=== PATIENT | female | born 1970 | race American Indian/Alaskan Native ===

== ENCOUNTER 2017-06-11 11:52 | Outpatient (CLI) | payer BC ==
[2017-06-11 12:20] LABS: Basophils % (Auto) 0.7 % (0.0-1.8); Eosinophils % (Auto) 1.8 % (0.0-4.3); Hematocrit 36.7 % (30.3-42.9); Hemoglobin 11.7 gm/dl (10.1-14.3); Mean Corpuscular HGB Conc 32 % (30-34); Mean Corpuscular Hemoglobin 26 pg (28-32); Mean Corpuscular Volume 82 fl (79-97); Platelet Count 333 K/mm3 (140-440); Red Blood Count 4.48 M/mm3 (3.65-5.03); Red Cell Distribution Width 15.3 % (13.2-15.2); White Blood Count 4.5 K/mm3 (4.5-11.0)
[2017-06-11 12:34] LABS: Anion Gap 18 mmol/L; BUN/Creatinine Ratio 13; Blood Urea Nitrogen 8 mg/dL (7-17); Calcium 8.3 mg/dL (8.4-10.2); Carbon Dioxide 24 mmol/L (22-30); Chloride 105.2 mmol/L (98-107); Cholesterol 170 mg/dL (50-199); Glucose 97 mg/dL (65-100); HDL Cholesterol 43 mg/dL (40-59); LDL Cholesterol,Direct 102 mg/dL (50-130); Potassium 3.6 mmol/L (3.6-5.0); Sodium 144 mmol/L (137-145); Triglycerides 127 mg/dL (2-149)
== END 2017-06-11 11:53 | disposition home or self-care (01) ==
LOC: LAB 11:52
PROVIDERS: ATTEND Obstetrics & Gynecology
DX: E66.8 Other obesity (principal); R79.89 Other specified abnormal findings of blood chemistry
CPT/HCPCS: 36415; 80048; 80061; 83036; 85025

== ENCOUNTER 2017-06-11 13:46 | Outpatient (CLI) | payer BC ==
--- NOTE | 2017-06-11 16:47 | Ultrasound Report ---
FINAL REPORT EXAM: US TRANSVAGINAL HISTORY: LEIOMYOMA UTERUS TECHNIQUE: Ultrasound in pelvis transvaginal with pulsed and color Doppler evaluation PRIORS: None. FINDINGS: Uterus is 12.9 x 10.0 x 7.9 centimeters The endometrial stripe is 0.6 centimeters There are 4 echogenic structures present within the body of the uterus. At the fundus there is a sub serosal fibroid measuring 3.1 x 4.2 x 3.3 centimeters. Are within the body of the uterus there are 3 additional fibroids the largest measuring 6.3 x 4.4 x 5.2 centimeters. Additionally is a 5.5 x 3.0 x 5.7 centimeters and a smaller 2.2 centimeter fibroid identified Right ovary is 3.4 x 2.0 x 2.0 centimeters. There is 1.2 centimeter simple appearing cyst within the right ovary and a smaller 1.1 centimeter cyst Left ovary is 3.4 x 1.4 x 2.5 centimeters. No abnormal mass or cyst identified. There is normal vascular flow on Doppler evaluation IMPRESSION: Enlarged multi fibroid uterus Right ovarian cysts which appear physiologic
--- NOTE | 2017-06-11 16:49 | Ultrasound Report ---
FINAL REPORT EXAM: US PELVIC COMPLETE HISTORY: LEIOMYOMA UTERUS TECHNIQUE: PRIORS: None. FINDINGS: Uterus is 12.9 x 10.0 x 7.9 centimeters The endometrial stripe is 0.6 centimeters There are 4 echogenic structures present within the body of the uterus. At the fundus there is a sub serosal fibroid measuring 3.1 x 4.2 x 3.3 centimeters. within the body of the uterus there are 3 additional fibroids the largest measuring 6.3 x 4.4 x 5.2 centimeters. Additionally is a 5.5 x 3.0 x 5.7 centimeters and a smaller 2.2 centimeter fibroid identified Right ovary is 3.4 x 2.0 x 2.0 centimeters. There is 1.2 centimeter simple appearing cyst within the right ovary and a smaller 1.1 centimeter cyst Left ovary is 3.4 x 1.4 x 2.5 centimeters. No abnormal mass or cyst identified. There is normal vascular flow on Doppler evaluation IMPRESSION: Enlarged multi fibroid uterus Right ovarian cysts which appear physiologic
== END 2017-06-11 13:47 | disposition home or self-care (01) ==
LOC: US 13:46
PROVIDERS: ATTEND Obstetrics & Gynecology
DX: D25.2 Subserosal leiomyoma of uterus (principal); N83.201 Unspecified ovarian cyst, right side
CPT/HCPCS: 36415; 76830; 76856; 80048; 80061; 83036; 85025

== ENCOUNTER 2017-08-21 05:49 | Emergency (ER) | payer BC ==
[2017-08-21 05:56] VITALS: BP 139/77
[2017-08-21] MEDS ORDERED: MOTRIN PO ONE (07:55)
--- NOTE | 2017-08-21 08:09 | Emergency Department Report ---
ED Headache HPI - General Chief Complaint: Headache Stated Complaint: HEADACHE Time Seen by Provider: 08/21/17 07:55 Source: patient - History of Present Illness Initial Comments: Patient is a 47-year-old female with no prior medical history who presents to ED complaining of intermittent, throbbing/aching, 6 out of 10 intensity, temporal parietal localized headache for the past 3 days. Patient states she usually does not get headaches this the first time she is in headache. Patient states she took a Motrin 600mg that relieved her pain for a few hours but pain came back. Patient states headache was a bit worse this morning so she couldn' t go to work. She denies any falls, trauma to the head, injuries, blurry vision , nausea or vomiting. Quality: moderate Head Injury Location: temporal, parietal Modifying Factors: improves with: medication (motrin) Associated Symptoms: denies: confusion, fatigue, facial pain, loss of consciousness, nausea/vomiting, nasal congestion, sinus infection, stiff neck Allergies/Adverse Reactions: Allergies No Known Allergies Allergy (Unverified 06/11/17 13:46) Home Medications: Ambulatory Orders Butalb/Acetamin/Caff 50-325-40 [Fioricet] 1 tab PO Q6HR PRN #20 tab 08/21/17 Ibuprofen [Motrin 800 MG tab] 800 mg PO Q8H #30 tablet 08/21/17 ED Review of Systems ROS: Stated complaint: HEADACHE Other details as noted in HPI Constitutional: denies: chills, fever Eyes: denies: eye pain, eye discharge, vision change ENT: denies: ear pain, throat pain Respiratory: denies: cough, shortness of breath, wheezing Cardiovascular: denies: chest pain, palpitations Endocrine: no symptoms reported Gastrointestinal: denies: abdominal pain, nausea, vomiting, diarrhea Genitourinary: denies: urgency, dysuria, discharge Musculoskeletal: denies: back pain, joint swelling, arthralgia, myalgia Skin: denies: rash, lesions Neurological: headache. denies: weakness, numbness, paresthesias, confusion, abnormal gait Psychiatric: denies: anxiety, depression Hematological/Lymphatic: denies: easy bleeding, easy bruising ED Past Medical Hx - Past Medical History Previous Medical History?: Yes Additional medical history: Uterine fibroids - Surgical History Additional Surgical History: Myomectomy - Social History Smoking Status: Never Smoker Substance Use Type: Alcohol - Medications Home Medications: Home Medications Medication Instructions Recorded Confirmed Last Taken Type Butalb/Acetamin/Caff 50-325-40 1 tab PO Q6HR PRN #20 tab 08/21/17 Unknown Rx [Fioricet] Ibuprofen [Motrin 800 MG tab] 800 mg PO Q8H #30 tablet 08/21/17 Unknown Rx ED Physical Exam - General Limitations: No Limitations General appearance: alert, in no apparent distress - Head Head exam: Present: atraumatic, normocephalic - Eye Eye exam: Present: normal appearance, PERRL, EOMI. Absent: conjunctival injection, periorbital swelling Pupils: Present: normal accommodation - ENT ENT exam: Present: mucous membranes moist - Neck Neck exam: Present: normal inspection, full ROM. Absent: tenderness, lymphadenopathy - Respiratory Respiratory exam: Present: normal lung sounds bilaterally. Absent: respiratory distress - Cardiovascular Cardiovascular Exam: Present: regular rate, normal rhythm. Absent: systolic murmur, diastolic murmur, rubs, gallop - Extremities Exam Extremities exam: Present: normal inspection - Back Exam Back exam: Present: normal inspection - Neurological Exam Neurological exam: Present: alert, oriented X3, CN II-XII intact, normal gait, reflexes normal - Expanded Neurological Exam Expanded Patient oriented to: Present: person, place, time Speech: Present: fluid speech Cranial nerves: EOM's Intact: Normal, Facial Sensation: Normal Cerebellar function: Finger to Nose: Normal Sensory exam: Upper Extremity Light Touch: Normal, Lower Extremity Light Touch: Normal Motor strength exam: RUE: 5, LUE: 5, RLE: 5, LLE: 5 Best Eye Response ([place]): (4) open spontaneously Best Motor Response ([place]): (6) obeys commands Best Verbal Response ([place]): (5) oriented [place] Total: 15 - Psychiatric Psychiatric exam: Present: normal affect, normal mood. Absent: depressed - Skin Skin exam: Present: warm, dry, intact, normal color. Absent: rash ED Course Vital Signs 08/21/17 08/21/17 08/21/17 05:51 05:57 08:01 Temperature 98.5 F 98.5 F Pulse Rate 70 70 Respiratory 16 18 16 Rate Blood Pressure 139/77 139/77 O2 Sat by Pulse 100 100 Oximetry ED Medical Decision Making - Radiology Data Radiology results: report reviewed, image reviewed CT HEAD WITHOUT CONTRAST INDICATION: Headache. COMPARISON: None similar. FINDINGS: Noncontrast head CT demonstrates symmetric ventricles and sulci without acute or recent infarct, hemorrhage, mass effect or midline shift. No abnormal extra-axial fluid collections. Posterior fossa structures and basilar cisterns appear within normal limits. Clear imaged paranasal sinuses and mastoid air cells. Intact calvarium. Normal overlying scalp soft tissues. CONCLUSION: No acute intracranial CT abnormality, as described. Thank you for the opportunity to participate in this patient's care. Transcribed By: RS Dictated By: PILAR DAVILA MD Electronically Authenticated By: PILAR DAVILA MD Signed Date/Time: 08/21/17 9539 - Medical Decision Making 47-year-old female presents with a migraine headache ED course: Patient received Motrin 800 ED, CT scan of the head ordered CT scan shows no acute findings I discussed this report with the patient. I discussed the patient to continue to take Motrin every 8 hours for pain and get some rest. I discussed with the patient that if headache persists to follow up with neurologist as referred. Disposition follow-up with her primary care physician. Patient has no neuro deficits, she is neurologically intact, speaking in full sentences, alert and oriented 3 I discussed the patient is any worsening symptoms or she has new-onset symptoms return to ED immediately Vital signs are normal patient is in no acute distress. Critical care attestation.: If time is entered above; I have spent that time in minutes in the direct care of this critically ill patient, excluding procedure time. ED Disposition Clinical Impression: Acute tension-type headache Qualifiers: Intractability: not intractable Qualified Code(s): G44.209 - Tension-type headache, unspecified, not intractable Migraine headache without aura Qualifiers: Status migrainosus presence: without status migrainosus Intractability: not intractable Qualified Code(s): G43.009 - Migraine without aura, not intractable , without status migrainosus Disposition: DC-01 TO HOME OR SELFCARE Is pt being admited?: No Does the pt Need Aspirin: No Condition: Stable Instructions: Migraine Headache (ED), Tension Headache (ED), Acute Headache (ED ) Additional Instructions: Make sure to follow up with the primary care physician as discussed. Take all your medications as you've been prescribed. If you have any worsening symptoms or develop new symptoms please return to ED immediately. Prescriptions: Butalb/Acetamin/Caff 50-325-40 [Fioricet] 1 tab PO Q6HR PRN #20 tab PRN Reason: Headache Ibuprofen [Motrin 800 MG tab] 800 mg PO Q8H #30 tablet Referrals: PRIMARY CARE, [Primary Care Provider] - 3-5 Days LANEY DUNCAN MD [Staff Physician] - 3-5 Days FELICIA CRYSTAL MD [Referring] - 3-5 Days [facility] [Outside] - 3-5 Days BRADFORD DELVALLE MD [Staff Physician] - 3-5 Days Forms: Accompanied Note, Work/School Release Form(ED)
--- NOTE | 2017-08-21 09:06 | Cat Scan Report ---
CT HEAD WITHOUT CONTRAST INDICATION: Headache. COMPARISON: None similar. FINDINGS: Noncontrast head CT demonstrates symmetric ventricles and sulci without acute or recent infarct, hemorrhage, mass effect or midline shift. No abnormal extra-axial fluid collections. Posterior fossa structures and basilar cisterns appear within normal limits. Clear imaged paranasal sinuses and mastoid air cells. Intact calvarium. Normal overlying scalp soft tissues. CONCLUSION: No acute intracranial CT abnormality, as described. Thank you for the opportunity to participate in this patient's care.
== END 2017-08-21 10:04 | disposition home or self-care (01) ==
LOC: EEVIPCON 05:49 → ED 05:49
DX: G44.209 Tension-type headache, unspecified, not intractable (principal); G43.009 Migraine without aura, not intractable, without status migrainosus
CPT/HCPCS: 70450; 99283